=== PATIENT | female | born 1975 | race Caucasian/White ===

== ENCOUNTER 2017-01-03 11:48 | Outpatient (CLI) | payer OTHER ==
--- NOTE | 2017-01-04 18:18 | Mammography Report ---
DIGITAL SCREENING MAMMOGRAM: 01/03/2017 CLINICAL INDICATION: A 41-year-old for baseline. TECHNIQUE: Routine CC and MLO projections were obtained of the breasts. The breasts demonstrate scattered fibroglandular densities bilaterally. No suspicious masses, cluste red microcalcifications, or regions of architectural distortion are identified. IMPRESSION: NEGATIVE EXAMINATION. RECOMMENDATION: ROUTINE ANNUAL SCREENING UNLESS OTHERWISE CLINICALLY INDICATED. BIRADS CATEGORY: 1, NEGATIVE. STANDARD QUALIFYING STATEMENTS 1. This examination was reviewed with the aid of Computed-Aided Detection (CAD). 2. A negative or benign imaging report should not delay biopsy if clinically suspicious findings are present. Consider surgical consultation if warranted. More than 5% of cancers are not identified b y imaging. 3. Dense breasts may obscure an underlying neoplasm. JOB #: [id number] EXT JOB #:[id number]
== END 2017-01-03 11:49 | disposition home or self-care (01) ==
LOC: DI.N 11:48
PROVIDERS: ATTEND Family Medicine
DX: Z12.31 Encounter for screening mammogram for malignant neoplasm of breast (principal)
CPT/HCPCS: 77067

== ENCOUNTER 2017-12-30 15:47 | Outpatient (CLI) | payer OTHER ==
--- NOTE | 2017-12-31 18:29 | MRI Report ---
Procedure Date: 12/30/2017 Accession Number: [id number] / [id number] Procedure: MRI - Knee LT W/O CPT Code: FULL RESULT: EXAM: LEFT KNEE MRI WITHOUT CONTRAST EXAM DATE: 12/30/2017 05:44 PM. CLINICAL HISTORY: Pain in left knee. COMPARISON: Knee 3 view left 05/01/2017. TECHNIQUE: Multiplanar, multisequence T1-weighted and fluid-sensitive sequences of the knee without contrast. Other: None. FINDINGS: Bones: Small osteophytes in all 3 compartments. Alignment normal. No fracture or marrow edema. Articular Cartilage: Grade 3 chondromalacia medial compartment. Focal grade 3 chondromalacia lateral compartment. Medial Meniscus: 0.8 cm transverse tear near posterior horn root with 0.6 cm distraction. Lateral Meniscus: The lateral meniscus is intact. Cruciate Ligaments: The anterior and posterior cruciate ligaments are intact. Collateral Ligaments: The medial collateral and lateral collateral ligamentous structures are intact. Tendons: The quadriceps, patellar, semimembranosus, and popliteus tendons are unremarkable. Musculature: No edema or fatty atrophy. Other: Small joint effusion. No popliteal cyst. No loose bodies. The medial and lateral retinacula are intact. The subcutaneous tissues and fat pads are unremarkable. IMPRESSION: 1. Distracted transverse tear posterior horn medial meniscal root. 2. 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 [facility] MUSCULOSKELETAL RADIOLOGY SECTION
== END 2017-12-30 15:48 | disposition home or self-care (01) ==
LOC: DI 15:47
PROVIDERS: ATTEND Family Medicine
DX: M25.562 Pain in left knee (principal); S83.242A Other tear of medial meniscus, current injury, left knee, initial encounter; M94.262 Chondromalacia, left knee; M25.762 Osteophyte, left knee

== ENCOUNTER 2018-09-03 14:53 | Outpatient (CLI) | payer OTHER | END 2018-09-03 14:54 | disposition home or self-care (01) | LOC: SC 14:53 | PROVIDERS: ATTEND Internal Medicine Pulmonary Disease | DX: G47.10 Hypersomnia, unspecified (principal); R41.89 Other symptoms and signs involving cognitive functions and awareness; G47.8 Other sleep disorders; R06.83 Snoring; E66.01 Morbid (severe) obesity due to excess calories; Z68.41 Body mass index [BMI] 40.0-44.9, adult | CPT/HCPCS: 99203; 99212 ==

== ENCOUNTER 2018-09-15 21:37 | Outpatient (CLI) | payer OTHER | END 2018-09-15 21:38 | disposition home or self-care (01) | LOC: SC 21:37 | PROVIDERS: ATTEND Internal Medicine Pulmonary Disease | DX: R06.83 Snoring (principal); G47.8 Other sleep disorders | CPT/HCPCS: 95810 ==

== ENCOUNTER 2018-10-10 13:16 | Outpatient (CLI) | payer OTHER | END 2018-10-10 13:17 | disposition home or self-care (01) | LOC: SC 13:16 | PROVIDERS: ATTEND Nurse Practitioner Family | DX: R06.83 Snoring (principal); R03.0 Elevated blood-pressure reading, without diagnosis of hypertension; G47.00 Insomnia, unspecified; G47.10 Hypersomnia, unspecified; R53.83 Other fatigue | CPT/HCPCS: 99212; 99215 ==

== ENCOUNTER 2018-10-22 19:30 | Outpatient (CLI) | payer OTHER | END 2018-10-22 23:59 | disposition home or self-care (01) | LOC: SC 19:30 | PROVIDERS: ATTEND Internal Medicine Pulmonary Disease | DX: R06.81 Apnea, not elsewhere classified (principal); G47.8 Other sleep disorders; R51 Headache; R53.83 Other fatigue | CPT/HCPCS: 95806 ==

== ENCOUNTER 2018-11-12 10:58 | Outpatient (CLI) | payer OTHER ==
--- NOTE | 2018-11-13 00:04 | XRAY Report ---
Reason: COUGH,HYPERTENSION BENIGN ,SLEEP DISORDER,OBESITY Procedure Date: 11/12/2018 Accession Number: [id number] / [id number] Procedure: [facility] - Chest 2 View X-Ray CPT Code: 86570 FULL RESULT: EXAM: CHEST RADIOGRAPHY EXAM DATE: 11/12/2018 11:08 AM. CLINICAL HISTORY: COUGH, HYPERTENSION BENIGN ,SLEEP DISORDER,OBESITY. COMPARISON: None. TECHNIQUE: 2 views. FINDINGS: Lungs/Pleura: No focal opacities evident. No pleural effusion. No pneumothorax. Normal volumes. Mediastinum: Heart and mediastinal contours are unremarkable. Other: None. IMPRESSION: Normal 2-view chest radiography. [facility]
== END 2018-11-12 10:59 | disposition home or self-care (01) ==
LOC: DI.WCP 10:58
PROVIDERS: ATTEND Family Medicine
DX: R05 Cough (principal); I10 Essential (primary) hypertension; E66.9 Obesity, unspecified
CPT/HCPCS: 71046

== ENCOUNTER 2018-12-26 11:07 | Outpatient (CLI) | payer OTHER | END 2018-12-26 11:08 | disposition home or self-care (01) | LOC: SC 11:07 | PROVIDERS: ATTEND Nurse Practitioner Family | DX: R53.83 Other fatigue (principal); G47.00 Insomnia, unspecified | CPT/HCPCS: 99212; 99214 ==

== ENCOUNTER 2019-01-08 11:27 | Outpatient (CLI) | payer OTHER ==
[2019-01-08] MEDS ORDERED: BARIUM SULFATE 148 GM POWDER PO ONE (12:57)
[2019-01-08] MEDS ORDERED: BARIUM SULFATE 135 ML BOTTLE PO ONE (13:21)
--- NOTE | 2019-01-08 15:42 | XRAY Report ---
Reason: MORBID OBESITY WITH BMI OF 40.0-44.9,ADULT Procedure Date: 01/08/2019 Accession Number: [id number] / [id number] Procedure: FL - UGI W/Air CPT Code: FULL RESULT: EXAM: UPPER GI SERIES EXAM DATE: 01/08/2019 12:32 PM. CLINICAL HISTORY: Morbid obesity with BMI of 40. 0-44.9, adult. COMPARISONS: None. TECHNIQUE: Routine single contrast upper gastrointestinal technique. Fluoroscopy Time: 36 seconds. Number of fluoroscopy images: 6. An additional 5 follow-up flatplate exposures were obtained. FINDINGS: Normal rapid progression of contrast through the esophagus without holdup at the gastroesophageal junction. No evidence of hernia or gastric volvulus or malposition. There is delayed emptying of the stomach with normal progression of contrast through the duodenum and into the proximal jejunum with no malrotation detected. IMPRESSION: Normal anatomic configuration without hernia. [facility]
== END 2019-01-08 11:28 | disposition home or self-care (01) ==
LOC: DI 11:27
PROVIDERS: ATTEND Registered Nurse
DX: E66.01 Morbid (severe) obesity due to excess calories (principal); Z68.41 Body mass index [BMI] 40.0-44.9, adult
CPT/HCPCS: 74246; A9270

== ENCOUNTER 2021-06-16 13:31 | Day surgery (SDC) | payer OTHER ==
[2021-06-16] MEDS ORDERED: LACTATED RINGERS 1,000 ML IV ONE ×3 (13:53→15:47)
[2021-06-16] MEDS ORDERED: PROPOFOL 500 MG/50 ML 500 MG/50 ML VIAL ONE (14:11)
[2021-06-16] MEDS ORDERED: LIDOCAINE-MPF 2% 5 ML VIAL ONE (14:11)
--- NOTE | 2021-06-16 14:12 | ANESTHESIA ---
Pre-Anesthesia VS, & Labs - Diagnosis reflux, screening - Procedure EGD, Colonoscopy w/possible biopsies Vital Signs: Temp Pulse Resp BP Pulse Ox 37.0 C 74 16 135/75 H 100 06/16/21 13:40 06/16/21 13:40 06/16/21 13:40 06/16/21 13:40 06/16/21 13:40 Height: 5 ft 2 in Weight (kg): 76 kg Body Mass Index: 30.6 BMI Classification: Obese - NPO >8 hours - Is Patient ?: Waiver signed - Lab Results Lab results reviewed: Yes Home Medications and Allergies Home Medications: Ambulatory Orders Omeprazole Magnesium 20 mg PO 06/15/21 Ergocalciferol [Vitamin D2] 1 cap ORAL DAILY 12/19/18 Multivitamin [Multiple Vitamins] 1 tab ORAL DAILY 12/19/18 diphenhydrAMINE HCL [Sleep Aid] 30 ml ORAL PRN PRN 12/19/18 Omeprazole Magnesium 20 mg PO 06/15/21 Allergies/Adverse Reactions: Allergies Allergy/AdvReac Type Severity Reaction Status Date / Time raul AdvReac Unknown Unknown Uncoded 06/16/21 13:54 Anes History & Medical History - Anesthetic History Anesthesia Complications: reports: No previous complications Family history of Anesthesia Complications: Denies Family history of Malignant Hyperthermia: Denies - Medical History Cardiovascular: reports: None Pulmonary: reports: None Gastrointestinal: reports: None, Ulcers Urinary: reports: None Musculoskeletal: reports: None Endocrine/Autoimmune: reports: None Psychosocial: reports: No issues indicated History of Cancer?: No - Surgical History General: reports: Cholecystectomy, Gastric surgery (vertical sleeve) Cardiothoracic: reports: Other Orthopedic: reports: ACL reconstruction, Other Exam General: Alert, Oriented x3, Cooperative Dental: WNL Mouth Openin Fingerbreadth Neck Mobility: Normal Mallampati classification: II Thyromental Distance: 4-6 cm Respiratory: Lungs clear, Normal breath sounds, No respiratory distress Cardiovascular: Regular rate Neurological: Normal speech Mental/Cognitive Status: Alert/Oriented X3, Normal for patient Cognitive Status: Within normal limits Plan Anesthesia Type: Total IV Consent for Procedure(s) Verified and Reviewed: Yes Code Status: Attempt Resuscitation ASA classification: 2-Mild systemic disease Is this case an emergency?: No
[2021-06-16] MEDS ORDERED: PROPOFOL 200 MG/20 ML VIAL IVP ONE ×2 (15:12→15:39)
[2021-06-16] MEDS ORDERED: GLYCOPYRROLATE 1 MG/5 ML VIAL ONE (15:14)
[2021-06-16 16:00] VITALS: BP 122/83
--- NOTE | 2021-06-16 18:10 | ANESTHESIA POST OP EVALUATION ---
Anesthesia Post Eval - Post Anesthesia Eval Vitals: Last Vital Signs Temp 36.6 C 06/16/21 15:55 Pulse 62 06/16/21 15:59 Resp 16 06/16/21 15:59 BP 122/83 H 06/16/21 15:59 Pulse Ox 100 06/16/21 15:59 CV Function Including HR & BP: Stable Pain Control: Satisfactory Nausea & Vomiting: Negative Mental Status: Baseline Respiratory Status: Airway Patent Hydration Status: Satisfactory Anesthesia Complications: None
== END 2021-06-16 13:32 | disposition home or self-care (01) ==
LOC: SDS 13:31
PROVIDERS: ATTEND Surgery
PROC: 0DB38ZX Excision of Lower Esophagus, Via Natural or Artificial Opening Endoscopic, Diagnostic (ICD-10-PCS; principal; 2021-06-16 14:30)
PROC: 0DBN8ZX Excision of Sigmoid Colon, Via Natural or Artificial Opening Endoscopic, Diagnostic (ICD-10-PCS; 2021-06-16 14:30)
DX: Z12.11 Encounter for screening for malignant neoplasm of colon (principal); D12.5 Benign neoplasm of sigmoid colon; K21.9 Gastro-esophageal reflux disease without esophagitis; K57.30 Diverticulosis of large intestine without perforation or abscess without bleeding; I10 Essential (primary) hypertension; E66.9 Obesity, unspecified; Z68.31 Body mass index [BMI] 31.0-31.9, adult; Z79.899 Other long term (current) drug therapy; Z80.0 Family history of malignant neoplasm of digestive organs; Z90.49 Acquired absence of other specified parts of digestive tract; Z98.84 Bariatric surgery status
CPT/HCPCS: 43239; 45385; J7120